=== PATIENT | male | born 1940 | race Caucasian/White ===

== ENCOUNTER 2018-02-14 06:45 | Inpatient (IN) | payer MEDICARE ==
[~2018-02-14] VITALS: Ht 177.8 cm; Wt 92.0 kg
[~2018-02-14 06:45] MED LIST: ACID1TAB7 PO; ALIR75PE SQ; AMLO5TAB7 PO; ASPI-621 PO; CHOL2000 PO; CLIN300C8 PO; CLOP75TA PO; DOXA1TAB2 PO; FURO-93 PO; LISI-170 PO; METF100010 PO; METO25TA35 PO; MOEX15TA2 PO; OMEG1CAP24 PO; OXYC5TAB3 PO; POTA10TA11 PO; PRAV40TA2 PO; WARF3TAB52 PO-COUM
[2018-02-14] MEDS ORDERED: SODIUM CHLORIDE 0.9% 1,000 ML IV ONE (07:07)
[2018-02-14] MEDS ORDERED: ONDANSETRON 2MG/ML, 2ML IVPush ONE (07:30)
[2018-02-14] MEDS ORDERED: HYDROmorphone 2 MG/ML, 1ML ONE ×3 (07:30→11:10)
[2018-02-14] MEDS ORDERED: SODIUM CHLORIDE FLUSH 10ML SYR IVF ONE (07:30)
[2018-02-14] MEDS ORDERED: ONDANSETRON 2MG/ML, 2ML ONE ×2 (07:30→14:04)
[2018-02-14] MEDS: HYDROmorphone 2 MG/ML, 1ML IVPush PRN ×2 (07:43→08:51)
[2018-02-14 07:48] LABS: BASOPHILS # (AUTO) 0.05 x10^3/uL (0-0.1); BASOPHILS % (AUTO) 1 % (0-1); EOSINOPHILS # (AUTO) 0.15 x10^3/uL (0-0.4); EOSINOPHILS % (AUTO) 2 % (1-7); LYMPHOCYTES % (AUTO) 16 % (22-44); MD NO; MEAN CORPUSCULAR HEMOGLOBIN 30.8 pg (27.5-34.5); MEAN CORPUSCULAR HGB CONC 33.7 g/dL (33.2-36.2); MEAN CORPUSCULAR VOLUME 91.4 fL (81-97); MEAN PLATELET VOLUME 8.6 fL (7.4-10.4); MONOCYTES # (AUTO) 0.45 x10^3/uL (0.2-0.8); MONOCYTES % (AUTO) 7 % (2-9); NEUTROPHILS # (AUTO) 4.95 x10^3/uL (1.8-6.8); NEUTROPHILS % (AUTO) 74 % (42-75); PLATELET COUNT 260 x10^3/uL (130-400); RED BLOOD COUNT 4.46 x10^6/uL (4.38-5.82); RED CELL DISTRIBUTION WIDTH 13.5 % (9.4-14.8)
[2018-02-14 08:00] LABS: ALANINE AMINOTRANSFERASE 27 U/L (12-78); ALBUMIN 3.8 g/dL (3.4-5.0); ANION GAP 12 mmol/L (5-15); CALCIUM 8.8 mg/dL (8.5-10.1); CHLORIDE 109 mmol/L (98-107); CREATININE 1.65 mg/dL (0.7-1.3)
[2018-02-14 08:03] LABS: ALKALINE PHOSPHATASE 24 U/L (45-117); BILIRUBIN,TOTAL 0.4 mg/dL (0.2-1.0); TOTAL PROTEIN 7.5 g/dL (6.4-8.2)
[2018-02-14 08:53] LABS: CULTURE INDICATED? NO; MICROSCOPIC AUTO
[2018-02-14] MEDS ORDERED: HYDROmorphone 2 MG/ML, 1ML IVPush PRN (11:00)
[2018-02-14] MEDS ORDERED: SODIUM CHLORIDE FLUSH 10ML SYR IVF PRN (12:30)
[2018-02-14] MEDS: SODIUM CHLORIDE 0.9% 1,000 ML IV SCH (13:16)
[2018-02-14] MEDS ORDERED: hydrALAzine 20 MG/ML, 1ML IVPush PRN (13:30)
[2018-02-14] MEDS: INSULIN LISPRO 100 UNITS/ML, PEN SQ-INSULIN SCH ×2 (13:30→20:07)
[2018-02-14] MEDS ORDERED: POLYETHYLENE GLYCOL 17 GM PACKET PO PRN (13:30)
[2018-02-14] MEDS ORDERED: DOCUSATE 100 MG CAPSULE PO PRN (13:30)
[2018-02-14] MEDS ORDERED: ONDANSETRON 2MG/ML, 2ML IVPush PRN (13:30)
[2018-02-14] MEDS ORDERED: BISACODYL 10 MG SUPP PR PRN (13:30)
[2018-02-14] MEDS ORDERED: FENTANYL PF 250 MCG/5ML ONE (14:03)
[2018-02-14] MEDS ORDERED: PHENYLEPHRINE 10 MG/ML ONE (14:04)
[2018-02-14] MEDS ORDERED: CIPROFLOXACIN/PMX 400MG/200ML 200 ML IVPB ONE (14:04)
[2018-02-14] MEDS ORDERED: OMNIPAQUE 350 MG/ML, 50 ML BOTTLE ONE (14:05)
[2018-02-14] MEDS ORDERED: PROPOFOL 10 MG/ML, 20ML ONE (14:19)
[2018-02-14] MEDS ORDERED: DEXAMETHASONE 4 MG/ML, 1ML ONE ×2 (14:19)
[2018-02-14] MEDS ORDERED: SUCCINYLCHOLINE 20 MG/ML, 10ML ONE (14:19)
[2018-02-14] MEDS ORDERED: EPHEDRINE 50 MG/ML, 1ML ONE (14:19)
[2018-02-14] MEDS ORDERED: ROCURONIUM 10MG/ML,5ML ONE (14:19)
[2018-02-14] MEDS ORDERED: hydrALAzine 20 MG/ML, 1ML IV PRN (14:30)
[2018-02-14] MEDS ORDERED: HALOPERIDOL 5 MG/ML IV PRN (14:30)
[2018-02-14] MEDS ORDERED: FENTANYL PF 100 MCG/2ML IV PRN (14:30)
[2018-02-14] MEDS ORDERED: LORazepam 2 MG/ML, 1ML IVPush PRN (14:30)
[2018-02-14] MEDS ORDERED: MEPERIDINE/PF 25MG/0.5ML IVPush PRN (14:30)
[2018-02-14] MEDS ORDERED: ACETAMINOPHEN 325 MG TABLET PO PRN (14:30)
[2018-02-14] MEDS ORDERED: HYDROmorphone 1 MG/ML, 1ML IV PRN (14:30)
[2018-02-14] MEDS ORDERED: PROMETHAZINE 12.5 MG SUPP PR PRN (14:30)
[2018-02-14] MEDS ORDERED: OXYcodone 5 MG/5 ML ORAL.SOL UDC PO PRN (14:30)
[2018-02-14] MEDS ORDERED: MORPHINE SULFATE 4 MG/ML, 1ML IVPush PRN (14:30)
[2018-02-14] MEDS ORDERED: EPHEDRINE 50 MG/ML, 1ML IVPush PRN (14:30)
[2018-02-14] MEDS ORDERED: ONDANSETRON ODT 8 MG PO PRN (14:30)
[2018-02-14] MEDS ORDERED: ONDANSETRON 2MG/ML, 2ML IV PRN (14:30)
[2018-02-14] MEDS ORDERED: MIDAZOLAM 1 MG/ML, 2ML IV PRN (14:30)
[2018-02-14] MEDS ORDERED: PROMETHAZINE 25 MG/ML, 1ML IV PRN (14:30)
[2018-02-14] MEDS ORDERED: ALBUTEROL SULFATE 2.5 MG/3 ML NPPB PRN (14:30)
[2018-02-14] MEDS ORDERED: OXYcodone 5 MG/5 ML ORAL.SOL UDC ONE (16:15)
[2018-02-14] MEDS ORDERED: LABETALOL 5MG/ML, 20ML ONE (16:22)
[2018-02-14] MEDS: LABETALOL 5MG/ML, 20ML IV PRN ×2 (16:22→16:27)
[2018-02-14] MEDS ORDERED: hydrALAzine 20 MG/ML, 1ML ONE (16:33)
[2018-02-14 17:09] VITALS: BP 147/76
[2018-02-14 18:00] VITALS: BP 174/90
[2018-02-14 18:28] VITALS: BP 138/61
[2018-02-14] MEDS: morphine SULFATE 10 MG/ML, 1ML IVPush PRN ×2 (20:07→23:00)
[2018-02-14] MEDS ORDERED: TEMPLATE NON-FORMULARY MED. (Metformin Hcl** (Metformin Hcl Er**) 1,000 MG) PO SCH (21:00)
[2018-02-14] MEDS: PRAVASTATIN 40 MG TABLET PO SCH (21:18)
[2018-02-14] MEDS: LISINOPRIL 20 MG TABLET PO SCH (21:19)
[2018-02-14] MEDS: DOXAZOSIN 1MG TABLET PO SCH (21:19)
[2018-02-15 00:17] VITALS: BP 128/62
[2018-02-15] MEDS: morphine SULFATE 10 MG/ML, 1ML IVPush PRN ×6 (01:56→22:11)
[2018-02-15] MEDS: SODIUM CHLORIDE 0.9% 1,000 ML IV SCH ×2 (01:56→15:45)
[2018-02-15] MEDS: INSULIN LISPRO 100 UNITS/ML, PEN SQ-INSULIN SCH ×4 (02:01→20:03)
[2018-02-15 03:39] VITALS: BP 109/55
[2018-02-15 05:26] LABS: BASOPHILS # (AUTO) 0.03 x10^3/uL (0-0.1); BASOPHILS % (AUTO) 0 % (0-1); EOSINOPHILS % (AUTO) 0 % (1-7); LYMPHOCYTES # (AUTO) 0.61 x10^3/uL (1-3.4); LYMPHOCYTES % (AUTO) 5 % (22-44); MD NO; MEAN CORPUSCULAR HEMOGLOBIN 31.1 pg (27.5-34.5); MEAN CORPUSCULAR HGB CONC 33.9 g/dL (33.2-36.2); MEAN CORPUSCULAR VOLUME 91.7 fL (81-97); MEAN PLATELET VOLUME 9.4 fL (7.4-10.4); MONOCYTES # (AUTO) 0.66 x10^3/uL (0.2-0.8); MONOCYTES % (AUTO) 5 % (2-9); NEUTROPHILS # (AUTO) 11.45 x10^3/uL (1.8-6.8); NEUTROPHILS % (AUTO) 90 % (42-75); PLATELET COUNT 250 x10^3/uL (130-400); RED BLOOD COUNT 4.25 x10^6/uL (4.38-5.82); RED CELL DISTRIBUTION WIDTH 13.7 % (9.4-14.8)
[2018-02-15 05:27] LABS: ANION GAP 9 mmol/L (5-15); CALCIUM 8.1 mg/dL (8.5-10.1); CHLORIDE 107 mmol/L (98-107)
[2018-02-15 08:01] VITALS: BP 123/58
[2018-02-15] MEDS: ASPIRIN 81 MG TABLET EC PO SCH (08:04)
[2018-02-15] MEDS: LISINOPRIL 20 MG TABLET PO SCH ×2 (08:05→20:06)
[2018-02-15] MEDS: AMLODIPINE 5 MG TABLET PO SCH (08:05)
[2018-02-15] MEDS: CHOLECALCIFEROL 1,000 UNIT TABLET PO SCH (08:06)
[2018-02-15 13:13] VITALS: BP 112/57
[2018-02-15 19:44] VITALS: BP 117/57
[2018-02-15] MEDS: DOXAZOSIN 1MG TABLET PO SCH (20:06)
[2018-02-15] MEDS: PRAVASTATIN 40 MG TABLET PO SCH (20:06)
[2018-02-16] MEDS: INSULIN LISPRO 100 UNITS/ML, PEN SQ-INSULIN SCH ×2 (02:15→07:30)
[2018-02-16 02:18] VITALS: BP 122/57
[2018-02-16] MEDS: morphine SULFATE 10 MG/ML, 1ML IVPush PRN (02:23)
[2018-02-16] MEDS: SODIUM CHLORIDE 0.9% 1,000 ML IV SCH (04:10)
[2018-02-16 05:32] LABS: BASOPHILS # (AUTO) 0.07 x10^3/uL (0-0.1); BASOPHILS % (AUTO) 1 % (0-1); EOSINOPHILS # (AUTO) 0.17 x10^3/uL (0-0.4); EOSINOPHILS % (AUTO) 2 % (1-7); LYMPHOCYTES # (AUTO) 1.27 x10^3/uL (1-3.4); LYMPHOCYTES % (AUTO) 16 % (22-44); MD NO; MEAN CORPUSCULAR HEMOGLOBIN 32.1 pg (27.5-34.5); MEAN CORPUSCULAR HGB CONC 34.5 g/dL (33.2-36.2); MEAN PLATELET VOLUME 9.1 fL (7.4-10.4); MONOCYTES % (AUTO) 10 % (2-9); NEUTROPHILS # (AUTO) 5.82 x10^3/uL (1.8-6.8); NEUTROPHILS % (AUTO) 72 % (42-75); PLATELET COUNT 201 x10^3/uL (130-400); RED BLOOD COUNT 3.66 x10^6/uL (4.38-5.82)
[2018-02-16 05:44] LABS: ANION GAP 7 mmol/L (5-15); CALCIUM 8.2 mg/dL (8.5-10.1); CHLORIDE 108 mmol/L (98-107); CREATININE 1.37 mg/dL (0.7-1.3)
[2018-02-16 08:31] VITALS: BP 104/55
[2018-02-16] MEDS: ASPIRIN 81 MG TABLET EC PO SCH (08:52)
[2018-02-16] MEDS: LISINOPRIL 20 MG TABLET PO SCH (08:52)
[2018-02-16] MEDS: AMLODIPINE 5 MG TABLET PO SCH (08:52)
[2018-02-16] MEDS: CHOLECALCIFEROL 1,000 UNIT TABLET PO SCH (08:52)
[2018-02-16 12:38] VITALS: BP 135/64
== END 2018-02-16 14:00 | disposition home or self-care (01) | DRG 660 ==
LOC: ED 11:04 → EDIP 12:28 → 4NOR 13:40 → DCLOUNGE 02-16 13:27
PROVIDERS: ADMIT Internal Medicine; ATTEND Internal Medicine
PROC: 0TC68ZZ Extirpation of Matter from Right Ureter, Via Natural or Artificial Opening Endoscopic (ICD-10-PCS; 2018-02-14)
PROC: BT1D1ZZ Fluoroscopy of Right Kidney, Ureter and Bladder using Low Osmolar Contrast (ICD-10-PCS; 2018-02-14)
PROC: 0T768DZ Dilation of Right Ureter with Intraluminal Device, Via Natural or Artificial Opening Endoscopic (ICD-10-PCS; principal; 2018-02-14 14:00)
DX: N20.2 Calculus of kidney with calculus of ureter (principal); N17.9 Acute kidney failure, unspecified; E87.2 Acidosis; N13.1 Hydronephrosis with ureteral stricture, not elsewhere classified; K57.30 Diverticulosis of large intestine without perforation or abscess without bleeding; I11.9 Hypertensive heart disease without heart failure; E78.5 Hyperlipidemia, unspecified; I25.10 Atherosclerotic heart disease of native coronary artery without angina pectoris; E11.65 Type 2 diabetes mellitus with hyperglycemia; E11.51 Type 2 diabetes mellitus with diabetic peripheral angiopathy without gangrene; K44.9 Diaphragmatic hernia without obstruction or gangrene; N40.0 Benign prostatic hyperplasia without lower urinary tract symptoms; Z79.84 Long term (current) use of oral hypoglycemic drugs; Z82.49 Family history of ischemic heart disease and other diseases of the circulatory system; Z95.2 Presence of prosthetic heart valve; Z95.1 Presence of aortocoronary bypass graft; Z86.73 Personal history of transient ischemic attack (TIA), and cerebral infarction without residual deficits; Z79.01 Long term (current) use of anticoagulants; Z80.9 Family history of malignant neoplasm, unspecified; Z88.0 Allergy status to penicillin
CPT/HCPCS: 36415; 71045; 74018; 74176; 74420; 80048; 80053; 81001; 82360; 82962; 83605; 83690; 85025; 88300; 96374; 96375; 99285; C1726; G0378; J0744; J1100; J1170; J2405; J2704; J3010; Q9967; C1758; C1769; C2617; J0330; J0360; J1815; J2270; J2370; J7030

== ENCOUNTER → 2019-11-10 | Outpatient (CLI) | payer MEDICARE ==
[~2019-11-10] MED LIST changes: +AMLO-150 PO; -AMLO5TAB7 PO; -ASPI-621 PO; +ASPI81TA45 PO; +EVOL140P3 SQ; +GABA100C PO; +HYDR-3342 PO; +PIOG30TA68 PO
== END | disposition home or self-care (01) ==
LOC: CVU 12:27
PROVIDERS: ATTEND Internal Medicine Cardiovascular Disease
DX: I34.0 Nonrheumatic mitral (valve) insufficiency (principal); Z95.1 Presence of aortocoronary bypass graft
CPT/HCPCS: 93306

== ENCOUNTER → 2021-01-02 | Outpatient (CLI) | payer MEDICARE ==
[~2021-01-02] MED LIST changes: -ALIR75PE SQ; +ALIR75PE5 SQ; -CLIN300C8 PO; +CLIN300C9 PO; +EVOL140P3 INJ; +FURO40TA6 PO; -OXYC5TAB3 PO; +OXYC5TAB98 PO; +VIT1TABL34 PO
[2021-01-02 11:44] LABS: BASOPHILS % (AUTO) 1 % (0-1); EOSINOPHILS % (AUTO) 3 % (1-7); LYMPHOCYTES % (AUTO) 20 % (22-44); MEAN CORPUSCULAR HEMOGLOBIN 32.6 pg (27.5-34.5); MEAN CORPUSCULAR HGB CONC 33.5 g/dL (33.2-36.2); MEAN PLATELET VOLUME 8.3 fL (7.4-10.4); MONOCYTES % (AUTO) 10 % (2-9); NEUTROPHILS % (AUTO) 67 % (42-75); PLATELET COUNT 198 x10^3/uL (130-400); RED BLOOD COUNT 4.22 x10^6/uL (4.38-5.82); RED CELL DISTRIBUTION WIDTH 13.5 % (9.4-14.8)
[2021-01-02 11:50] LABS: ALANINE AMINOTRANSFERASE 26 U/L (12-78); ALBUMIN 3.8 g/dL (3.4-5.0); ANION GAP 8 mmol/L (5-15); CALCIUM 9.1 mg/dL (8.5-10.1); CHLORIDE 109 mmol/L (98-107); CREATININE 1.49 mg/dL (0.7-1.3)
[2021-01-02 11:53] LABS: ALKALINE PHOSPHATASE 44 U/L (45-117); BILIRUBIN,TOTAL 0.5 mg/dL (0.2-1.0); TOTAL PROTEIN 7.8 g/dL (6.4-8.2)
[2021-01-02 11:57] LABS: INTERNATIONAL NORMALIZED RATIO 1.07 (0.93-1.1); PROTHROMBIN TIME 11.4 Seconds (9.6-11.5)
== END | disposition home or self-care (01) ==
LOC: STAR 10:30
PROVIDERS: ATTEND Neurological Surgery
DX: Z01.818 Encounter for other preprocedural examination (principal); E88.2 Lipomatosis, not elsewhere classified; I49.8 Other specified cardiac arrhythmias; I45.10 Unspecified right bundle-branch block; I21.19 ST elevation (STEMI) myocardial infarction involving other coronary artery of inferior wall
CPT/HCPCS: 36415; 71046; 80053; 85025; 85610; 85730; 93005

== ENCOUNTER 2021-01-08 10:31 | Inpatient (IN) | payer MEDICARE ==
[~2021-01-08] VITALS: Ht 177.8 cm; Wt 98.9 kg
[2021-01-08] MEDS ORDERED: FISH OIL PO (11:14)
[2021-01-08] MEDS ORDERED: CHLORHEXIDINE 15 ML UDC ONE (11:20)
[2021-01-08] MEDS ORDERED: LACTATED RINGERS 1,000 ML IV SCH (11:30)
[2021-01-08] MEDS ORDERED: CHLORHEXIDINE 15 ML UDC PO ONE (11:30)
[2021-01-08] MEDS ORDERED: EPINEPHRINE 1 MG/ML, 1ML ONE (13:15)
[2021-01-08] MEDS ORDERED: VANCOMYCIN 1,000 MG ONE (13:15)
[2021-01-08] MEDS ORDERED: GENTAMICIN 80 MG/2 ML ONE (13:15)
[2021-01-08] MEDS ORDERED: BUPIVACAINE/PF 0.5% ONE (13:15)
[2021-01-08] MEDS ORDERED: FENTANYL PF 250 MCG/5ML ONE (13:39)
[2021-01-08] MEDS ORDERED: PROMETHAZINE 25 MG SUPP PR PRN (15:00)
[2021-01-08] MEDS ORDERED: ACETAMINOPHEN 325 MG TABLET PO PRN (15:00)
[2021-01-08] MEDS ORDERED: METHOCARBAMOL 1,000 MG in DEXTROSE 5% 100 ML IV PRN (15:00)
[2021-01-08] MEDS ORDERED: LABETALOL 5MG/ML, 20ML IV PRN ×2 (15:00→18:00)
[2021-01-08] MEDS ORDERED: hydrALAzine 20 MG/ML, 1ML IV PRN (15:00)
[2021-01-08] MEDS ORDERED: ONDANSETRON 2MG/ML, 2ML IVPush PRN (15:00)
[2021-01-08] MEDS ORDERED: PROMETHAZINE 25 MG/ML, 1ML IVPush PRN (15:00)
[2021-01-08] MEDS ORDERED: FENTANYL PF 100 MCG/2ML ONE ×2 (15:07→15:53)
[2021-01-08] MEDS ORDERED: OXYcodone 5 MG/5 ML ORAL.SOL UDC ONE ×2 (15:07→15:53)
[2021-01-08] MEDS ORDERED: ACETAMINOPHEN 650 MG/20.3 ML UDC ONE (15:07)
[2021-01-08] MEDS: FENTANYL PF 100 MCG/2ML IV PRN ×4 (15:09→16:05)
[2021-01-08] MEDS ORDERED: DEXAMETHASONE 4 MG/ML, 1ML ONE (15:12)
[2021-01-08] MEDS ORDERED: PROPOFOL 10 MG/ML, 20ML ONE (15:12)
[2021-01-08] MEDS ORDERED: ROCURONIUM 10MG/ML,5ML ONE (15:12)
[2021-01-08] MEDS ORDERED: GLYCOPYRROLATE 0.2MG/1ML, 5ML ONE (15:12)
[2021-01-08] MEDS ORDERED: SUCCINYLCHOLINE 20 MG/ML, 10ML ONE (15:12)
[2021-01-08] MEDS ORDERED: CEFAZOLIN 1,000 MG ONE (15:12)
[2021-01-08] MEDS ORDERED: NEOSTIGMINE 1 MG/ML, 10ML ONE (15:12)
[2021-01-08] MEDS ORDERED: ONDANSETRON 2MG/ML, 2ML ONE (15:12)
[2021-01-08] MEDS: OXYcodone 5 MG/5 ML ORAL.SOL UDC PO PRN ×2 (15:24→16:01)
[2021-01-08] MEDS ORDERED: HYDROmorphone 2 MG/ML, 1ML ONE (15:28)
[2021-01-08] MEDS: HYDROmorphone 1 MG/ML, 1ML INJ IVPush PRN ×2 (15:31→15:39)
[2021-01-08] MEDS ORDERED: hydrALAzine 20 MG/ML, 1ML ONE (15:33)
[2021-01-08] MEDS ORDERED: PROMETHAZINE 25 MG/ML, 1ML ONE (16:19)
[2021-01-08] MEDS ORDERED: DIAZEPAM 5 MG/ML, 2ML IV PRN (18:00)
[2021-01-08] MEDS ORDERED: HYDROcodone/APAP 5/325 TABLET PO PRN (18:00)
[2021-01-08] MEDS ORDERED: MAGNESIUM HYDROXIDE 8%, 30ML UDC PO PRN (18:00)
[2021-01-08] MEDS ORDERED: OXYcodone IR 5MG TABLET PO PRN (18:00)
[2021-01-08] MEDS ORDERED: BISACODYL 10 MG SUPP PR PRN (18:00)
[2021-01-08] MEDS ORDERED: DIAZEPAM 5 MG TABLET PO PRN (18:00)
[2021-01-08] MEDS ORDERED: HYDROmorphone 2 MG/ML, 1ML IM PRN (18:00)
[2021-01-08] MEDS ORDERED: ONDANSETRON 2MG/ML, 2ML IV PRN (18:00)
[2021-01-08] MEDS ORDERED: PROMETHAZINE 25 MG/ML, 1ML IM PRN (18:00)
[2021-01-08] MEDS ORDERED: CYCLOBENZAPRINE 10 MG TABLET PO PRN (18:00)
[2021-01-08 19:32] VITALS: BP 115/60
[2021-01-08] MEDS: DOXAZOSIN 1MG TABLET PO SCH (20:15)
[2021-01-08] MEDS: PRAVASTATIN 40 MG TABLET PO SCH (20:16)
[2021-01-08] MEDS: CEFAZOLIN PMX 1GM/50ML 50 ML IVPB SCH (21:32)
[2021-01-08 23:50] VITALS: BP 156/77
[2021-01-09] MEDS: NS + 20MEQ KCL 1,000 ML IV SCH ×3 (00:22→22:12)
[2021-01-09 03:11] VITALS: BP 152/68
[2021-01-09 05:16] LABS: BASOPHILS % (AUTO) 0 % (0-1); EOSINOPHILS % (AUTO) 0 % (1-7); LYMPHOCYTES % (AUTO) 3 % (22-44); MEAN CORPUSCULAR HEMOGLOBIN 32.4 pg (27.5-34.5); MEAN PLATELET VOLUME 8.8 fL (7.4-10.4); MONOCYTES % (AUTO) 5 % (2-9); NEUTROPHILS % (AUTO) 92 % (42-75); PLATELET COUNT 171 x10^3/uL (130-400); RED BLOOD COUNT 3.81 x10^6/uL (4.38-5.82); RED CELL DISTRIBUTION WIDTH 13.5 % (9.4-14.8)
[2021-01-09 05:26] LABS: ALBUMIN 3.3 g/dL (3.4-5.0); ANION GAP 8 mmol/L (5-15); CALCIUM 8.5 mg/dL (8.5-10.1); CHLORIDE 105 mmol/L (98-107)
[2021-01-09 05:27] LABS: CREATININE 1.39 mg/dL (0.7-1.3)
[2021-01-09] MEDS: CEFAZOLIN PMX 1GM/50ML 50 ML IVPB SCH (06:04)
[2021-01-09 07:25] VITALS: BP 162/79
[2021-01-09] MEDS: PIOGLITAZONE 15 MG TABLET PO SCH (09:17)
[2021-01-09] MEDS: SENNA/DOCUSATE TABLET PO SCH (09:17)
[2021-01-09] MEDS: FUROSEMIDE 40 MG TABLET PO SCH (09:17)
[2021-01-09 13:30] VITALS: BP 96/54
[2021-01-09] MEDS: OXYcodone IR 5MG TABLET PO PRN ×2 (14:57→19:58)
[2021-01-09] MEDS: METHOCARBAMOL 750 MG TABLET PO PRN (19:57)
[2021-01-09 20:06] VITALS: BP 163/74
[2021-01-09] MEDS: PRAVASTATIN 40 MG TABLET PO SCH (20:47)
[2021-01-09] MEDS: DOXAZOSIN 1MG TABLET PO SCH (20:47)
[2021-01-10 01:39] VITALS: BP 148/65
[2021-01-10 05:23] LABS: BASOPHILS % (AUTO) 0 % (0-1); EOSINOPHILS % (AUTO) 3 % (1-7); LYMPHOCYTES % (AUTO) 13 % (22-44); MEAN CORPUSCULAR HGB CONC 33.9 g/dL (33.2-36.2); MEAN PLATELET VOLUME 8.6 fL (7.4-10.4); MONOCYTES % (AUTO) 12 % (2-9); NEUTROPHILS % (AUTO) 71 % (42-75); PLATELET COUNT 153 x10^3/uL (130-400); RED BLOOD COUNT 3.47 x10^6/uL (4.38-5.82); RED CELL DISTRIBUTION WIDTH 13.6 % (9.4-14.8)
[2021-01-10] MEDS: SENNA/DOCUSATE TABLET PO SCH (08:13)
[2021-01-10] MEDS: FUROSEMIDE 40 MG TABLET PO SCH (08:13)
[2021-01-10] MEDS: PIOGLITAZONE 15 MG TABLET PO SCH (08:13)
[2021-01-10 08:15] VITALS: BP 101/61
[2021-01-10] MEDS: METHOCARBAMOL 750 MG TABLET PO PRN ×2 (08:15→18:11)
[2021-01-10] MEDS: OXYcodone IR 5MG TABLET PO PRN ×3 (13:46→18:07)
[2021-01-10 13:55] VITALS: BP 146/66
[2021-01-10] MEDS: NS + 20MEQ KCL 1,000 ML IV SCH ×2 (14:00→22:49)
[2021-01-10] MEDS: DEXAMETHASONE 4 MG/ML, 1ML IVPush SCH ×2 (18:07→22:49)
[2021-01-10 20:58] VITALS: BP 174/66
[2021-01-10] MEDS: DOXAZOSIN 1MG TABLET PO SCH (20:59)
[2021-01-10] MEDS: PRAVASTATIN 40 MG TABLET PO SCH (20:59)
[2021-01-10] MEDS ORDERED: FAMOTIDINE 20 MG TABLET PO SCH (21:00)
[2021-01-11 02:00] VITALS: BP 182/68
[2021-01-11 02:04] VITALS: BP 172/70
[2021-01-11] MEDS: METHOCARBAMOL 750 MG TABLET PO PRN (04:15)
[2021-01-11] MEDS: OXYcodone IR 5MG TABLET PO PRN ×3 (04:15→18:17)
[2021-01-11 05:11] LABS: BASOPHILS % (AUTO) 0 % (0-1); EOSINOPHILS % (AUTO) 0 % (1-7); LYMPHOCYTES % (AUTO) 4 % (22-44); MEAN CORPUSCULAR HEMOGLOBIN 33.1 pg (27.5-34.5); MONOCYTES % (AUTO) 3 % (2-9); NEUTROPHILS % (AUTO) 92 % (42-75); PLATELET COUNT 167 x10^3/uL (130-400); RED BLOOD COUNT 3.66 x10^6/uL (4.38-5.82); RED CELL DISTRIBUTION WIDTH 13.3 % (9.4-14.8)
[2021-01-11] MEDS: DEXAMETHASONE 4 MG/ML, 1ML IVPush SCH ×3 (05:14→18:17)
[2021-01-11 08:55] VITALS: BP 139/71
[2021-01-11] MEDS: PIOGLITAZONE 15 MG TABLET PO SCH (10:14)
[2021-01-11] MEDS: SENNA/DOCUSATE TABLET PO SCH (10:14)
[2021-01-11] MEDS: FUROSEMIDE 40 MG TABLET PO SCH (10:15)
[2021-01-11 12:40] VITALS: BP 119/60
[2021-01-11] MEDS: NS + 20MEQ KCL 1,000 ML IV SCH (16:40)
[2021-01-11] MEDS ORDERED: FAMOTIDINE 20 MG TABLET PO SCH (21:00)
== END 2021-01-11 18:37 | disposition home health service (06) | DRG 519 ==
LOC: OUT 10:31 → 4NE 17:17 → OUT 17:36 → 4NE 17:36 → OBSVTOIN 01-09 13:20
PROVIDERS: ADMIT Neurological Surgery; ATTEND Neurological Surgery
PROC: 01NB0ZZ Release Lumbar Nerve, Open Approach (ICD-10-PCS; 2021-01-08)
PROC: 01NR0ZZ Release Sacral Nerve, Open Approach (ICD-10-PCS; 2021-01-08)
PROC: 00NY0ZZ Release Lumbar Spinal Cord, Open Approach (ICD-10-PCS; principal; 2021-01-08 10:30)
DX: M48.061 Spinal stenosis, lumbar region without neurogenic claudication (principal); E87.1 Hypo-osmolality and hyponatremia; E88.2 Lipomatosis, not elsewhere classified; M47.26 Other spondylosis with radiculopathy, lumbar region; M47.27 Other spondylosis with radiculopathy, lumbosacral region; M48.07 Spinal stenosis, lumbosacral region; R33.9 Retention of urine, unspecified; Z87.891 Personal history of nicotine dependence; Z88.0 Allergy status to penicillin
CPT/HCPCS: 36415; 80048; 82040; 82962; 85025; G0378; J0171; J0690; J1100; J1170; J2270; J2405; J2550; J2704; J2710; J3010; J3370; J3480; J0330; J0360; J1580; J2800; J7120